=== PATIENT | male | born 1955 | race Caucasian/White ===

== ENCOUNTER → 2018-07-06 | Outpatient (CLI) | payer OTHER ==
[~2018-07-06] MED LIST: LOSARTAN-HCTZ1 EAC2 PO
--- NOTE | 2018-07-06 16:04 | Diagnostic Imaging Report ---
EXAM: CT Chest WITHOUT contrast 07/06/2018 3:00 PM INDICATION: Pulmonary nodule . Hypertension. COMPARISON: None TECHNIQUE: Chest was scanned utilizing a multidetector helical scanner from the lung apex through the level of the adrenal glands without administration of IV contrast. Absence of intravenous contrast decreases sensitivity for detection of lymphadenopathy and vascular pathology. Coronal and sagittal reformations were obtained. Routine protocol was performed. IV CONTRAST: None RADIATION DOSE: Total DLP: 520.80 mGy*cm Estimated effective dose: (DLP x 0.014 x size factor) mSv COMPLICATIONS: None FINDINGS: LINES/ TUBES: None. LUNGS AND AIRWAYS: 4 mm calcified granuloma in the left lung posterior to the aorta as seen on coronal reformatted image 68 and sagittal image 73. No consolidated pneumonia. Airways are normal. PLEURA: The pleural spaces are clear. HEART AND MEDIASTINUM: The thyroid gland is normal. No mediastinal, hilar or axillary lymphadenopathy. The heart is normal in size. There is no pericardial effusion. UPPER ABDOMEN: Fatty infiltration of the liver. BONES: The visualized bony thorax is within normal limits. SOFT TISSUES: Unremarkable. IMPRESSION: 4 mm calcified granuloma in the left lung posterior to the aorta. No right-sided hilar calcified granuloma is seen. No acute cardiopulmonary abnormality. Fatty infiltration of the liver. Signed by: Dr. Oz Cloud M.D. on 07/06/2018 4:00 PM
== END ==
LOC: CT 15:11
PROVIDERS: ATTEND Family Medicine
DX: R91.1 Solitary pulmonary nodule (principal)
CPT/HCPCS: 71250

== ENCOUNTER → 2020-08-22 | Day surgery (SDC) | payer OTHER ==
[2020-08-19 15:52] LABS: BASOPHILS # (AUTO) 0.1 (0.0-0.1); BASOPHILS % 1.2 % (0.0-1.0); EOSINOPHILS # (AUTO) 0.1 (0.0-0.4); EOSINOPHILS % 1.2 % (0.0-6.0); HEMATOCRIT 46.1 % (38.2-49.6); HEMOGLOBIN 15.5 g/dL (14.0-18.0); LYMPHOCYTES # (AUTO) 3.2 (1.0-3.2); LYMPHOCYTES % 34.3 % (18.0-39.1); MEAN CORPUSCULAR HEMOGLOBIN 28.5 pg (28-32); MEAN CORPUSCULAR HGB CONC 33.6 g/dL (31-35); MEAN CORPUSCULAR VOLUME 84.7 fL (81-99); MONOCYTES # (AUTO) 0.9 (0.2-0.8); MONOCYTES % 9.6 % (4.4-11.3); NEUTROPHILS % 53.4 % (38.7-80.0); PLATELET COUNT 215 x10e3/uL (140-360); RED BLOOD COUNT 5.44 x10e6/uL (4.3-5.7)
[~2020-08-22] MED LIST changes: +FENTANYL CITRATE/PF 100MCG/2 ML INJ ONE; +GLUCAGON FOR INJ 1 MG VIAL ONE; +HYOSCYAMINE 0.125 MG TAB ONE; +LIDOCAINE HCL 2% LOCAL INJ 5 ML SDV VIAL INJ ONE; +MIDAZOLAM HCL 2 MG/2 ML VIAL ONE; +PROPOFOL IV EMULSION 10 MG/ML 20 ML VIAL ONE; +SIMETHICONE 40 MG/0.6 ML BTL ONE
[2020-08-22 17:40] VITALS: BP 112/70
== END | disposition home or self-care (01) ==
LOC: OR 12:58
PROVIDERS: ATTEND Internal Medicine Gastroenterology
DX: Z09 Encounter for follow-up examination after completed treatment for conditions other than malignant neoplasm (principal); D12.3 Benign neoplasm of transverse colon; K57.30 Diverticulosis of large intestine without perforation or abscess without bleeding; K64.8 Other hemorrhoids; I10 Essential (primary) hypertension; F17.200 Nicotine dependence, unspecified, uncomplicated; Z01.810 Encounter for preprocedural cardiovascular examination; Z01.812 Encounter for preprocedural laboratory examination; Z11.59 Encounter for screening for other viral diseases; Z68.36 Body mass index [BMI] 36.0-36.9, adult
CPT/HCPCS: 36415; 45384; 85025; 93005; J1610; J2001; J2250; J2704; J3010; U0002; 45378; 45385

== ENCOUNTER 2021-03-23 08:59 | Inpatient (IN) | payer MEDICARE, OTHER ==
[~2021-03-23] VITALS: Ht 170.2 cm; Wt 90.7 kg
[~2021-03-23 08:59] MED LIST changes: -FENTANYL CITRATE/PF 100MCG/2 ML INJ ONE; -GLUCAGON FOR INJ 1 MG VIAL ONE; -HYOSCYAMINE 0.125 MG TAB ONE; -LIDOCAINE HCL 2% LOCAL INJ 5 ML SDV VIAL INJ ONE; -MIDAZOLAM HCL 2 MG/2 ML VIAL ONE; -PROPOFOL IV EMULSION 10 MG/ML 20 ML VIAL ONE; -SIMETHICONE 40 MG/0.6 ML BTL ONE
[2021-03-23] MEDS ORDERED: ONDANSETRON HCL INJ 2MG/ML 2ML 2 MG/ML VIAL IV STA (09:17)
[2021-03-23] MEDS ORDERED: SODIUM CHLORIDE 0.9% 1000ML 1,000 ML IV SCH (09:30)
[2021-03-23] MEDS: FENTANYL CITRATE/PF 100MCG/2 ML INJ IV PRN ×2 (09:56→12:30)
[2021-03-23 09:57] LABS: HEMATOCRIT 45.5 % (38.2-49.6); HEMOGLOBIN 16.3 g/dL (14.0-18.0); LYMPHOCYTES % 3.9 % (18.0-39.1); MEAN CORPUSCULAR HEMOGLOBIN 30.8 pg (28-32); MEAN CORPUSCULAR HGB CONC 35.8 g/dL (31-35); MONOCYTES % 5.1 % (4.4-11.3); NEUTROPHILS % 90.1 % (38.7-80.0); PLATELET COUNT 238 x10e3/uL (140-360); RED BLOOD COUNT 5.29 x10e6/uL (4.3-5.7); RED CELL DISTRIBUTION WIDTH 14.4 % (11.7-14.4)
[2021-03-23 09:58] LABS: BASOPHILS # (AUTO) 0.1 (0.0-0.1); BASOPHILS % 0.3 % (0.0-1.0); LYMPHOCYTES # (AUTO) 0.8 (1.0-3.2)
[2021-03-23 10:03] LABS: ALANINE AMINOTRANSFERASE 26 IU/L (0-55); ALBUMIN 3.9 g/dL (3.5-5.0); ALKALINE PHOSPHATASE 94 IU/L (40-150); ANION GAP 16.9 mmol/L (8-16); BLOOD UREA NITROGEN 14 mg/dL (7-26); BUN/CREATININE RATIO 18 (6-25); CALCIUM 9.2 mg/dL (8.4-10.2); CARBON DIOXIDE 25 mmol/L (22-29); CHLORIDE 102 mmol/L (98-107); CREATININE, SERUM 0.78 mg/dL (0.72-1.25); EST GLOMERULAR FILTRATION RATE > 60 ML/MIN (60-); GLUCOSE 218 mg/dL (74-118); POTASSIUM 3.9 mmol/L (3.5-5.1); SODIUM 140 mmol/L (136-145)
[2021-03-23 10:17] LABS: CLARITY,URINE CLEAR (CLEAR); COLOR,URINE YELLOW (YELLOW); KETONES,URINE 2+ (NEGATIVE); LEUKOCYTE ESTERASE ,URINE NEGATIVE (NEGATIVE); NITRITE,URINE NEGATIVE (NEGATIVE); PROTEIN,URINE DIPSTICK 2+ (NEGATIVE); URINE UROBILINOGEN 1 mg/dL (0.2 - 1)
[2021-03-23 10:30] LABS: MUCUS,URINE FEW (RARE)
[2021-03-23 12:02] LABS: CHOL/HDL RATIO 4.7 (3.9-4.7)
[2021-03-23] MEDS: PIPERACILLIN/TAZO 4.5 GM 100 ML IV SCH (12:30)
[2021-03-23] MEDS: SODIUM CHLORIDE 0.9% 1000ML 1,000 ML IV SCH ×2 (12:30→15:15)
[2021-03-23] MEDS: ONDANSETRON HCL INJ 2MG/ML 2ML 2 MG/ML VIAL IV PRN (12:30)
[2021-03-23 15:28] VITALS: BP 162/78
[2021-03-23 15:29] VITALS: BP 162/78
[2021-03-23 15:37] VITALS: BP 162/78
[2021-03-23] MEDS ORDERED: MORPHINE SULFATE INJ 4 MG/ML INJ 1ML IV ONE (17:50)
[2021-03-23 19:54] VITALS: BP 153/75
[2021-03-23] MEDS: HYDROCHLOROTHIAZIDE 25 MG TAB PO SCH (20:45)
[2021-03-23] MEDS: LOSARTAN POTASSIUM 100 MG TAB PO SCH (20:45)
[2021-03-23] MEDS: ACETAMINOPHEN 325 MG TAB PO PRN (20:45)
[2021-03-23 21:00] VITALS: BP 153/75
[2021-03-23 23:56] VITALS: BP 130/71
[2021-03-24] MEDS: PIPERACILLIN/TAZO 4.5 GM 100 ML IV SCH ×2 (00:15→11:53)
[2021-03-24] MEDS ORDERED: SODIUM CHLORIDE 0.9% 50ML 50 ML ONE (00:21)
[2021-03-24] MEDS: SODIUM CHLORIDE 0.9% 1000ML 1,000 ML IV SCH ×4 (00:30→21:05)
[2021-03-24] MEDS: ACETAMINOPHEN 325 MG TAB PO PRN (04:32)
[2021-03-24 04:36] VITALS: BP 128/69
[2021-03-24 04:53] LABS: BASOPHILS # (AUTO) 0.1 (0.0-0.1); BASOPHILS % 0.2 % (0.0-1.0); HEMATOCRIT 42.1 % (38.2-49.6); HEMOGLOBIN 13.9 g/dL (14.0-18.0); LYMPHOCYTES # (AUTO) 1.4 (1.0-3.2); LYMPHOCYTES % 6.8 % (18.0-39.1); MEAN CORPUSCULAR HEMOGLOBIN 28.2 pg (28-32); MEAN CORPUSCULAR VOLUME 85.4 fL (81-99); MONOCYTES # (AUTO) 2.2 (0.2-0.8); MONOCYTES % 10.4 % (4.4-11.3); NEUTROPHILS # (AUTO) 17.2 (2.1-6.9); PLATELET COUNT 237 x10e3/uL (140-360); RED BLOOD COUNT 4.93 x10e6/uL (4.3-5.7); RED CELL DISTRIBUTION WIDTH 13.1 % (11.7-14.4)
[2021-03-24 05:21] LABS: ANION GAP 13.9 mmol/L (8-16); BLOOD UREA NITROGEN 12 mg/dL (7-26); BUN/CREATININE RATIO 14 (6-25); CALCIUM 8.4 mg/dL (8.4-10.2); CARBON DIOXIDE 26 mmol/L (22-29); CHLORIDE 103 mmol/L (98-107); CREATININE, SERUM 0.88 mg/dL (0.72-1.25); EST GLOMERULAR FILTRATION RATE > 60 ML/MIN (60-); GLUCOSE 176 mg/dL (74-118); POTASSIUM 3.9 mmol/L (3.5-5.1); SODIUM 139 mmol/L (136-145)
[2021-03-24] MEDS: HYDROCHLOROTHIAZIDE 25 MG TAB PO SCH (08:17)
[2021-03-24] MEDS: LOSARTAN POTASSIUM 100 MG TAB PO SCH (08:17)
[2021-03-24 08:32] VITALS: BP 134/79
[2021-03-24] MEDS ORDERED: SEVOFLURANE INHAL SOLN 250 ML PEN BTL ONE (11:37)
[2021-03-24] MEDS ORDERED: ROCURONIUM BROMIDE 10 MG/ML 5ML VIAL IV ONE (11:37)
[2021-03-24] MEDS ORDERED: POVIDONE IODINE 0.05% 0.05 % ML PO ONE (11:37)
[2021-03-24] MEDS ORDERED: LIDOCAINE HCL 2% LOCAL INJ 5 ML SDV VIAL INJ ONE (11:37)
[2021-03-24] MEDS ORDERED: DEXAMETHASONE SOD PHOS INJ 4 MG/ML VIAL ONE (11:37)
[2021-03-24] MEDS ORDERED: PROPOFOL IV EMULSION 10 MG/ML 20 ML VIAL ONE (11:37)
[2021-03-24] MEDS ORDERED: LIDOCAINE HCL 2% JELLY 5 ML TUBE ONE (11:37)
[2021-03-24] MEDS ORDERED: ONDANSETRON HCL INJ 2MG/ML 2ML 2 MG/ML VIAL ONE (11:37)
[2021-03-24] MEDS ORDERED: CEFOXITIN SOD 1 GM VIAL ONE (11:37)
[2021-03-24 11:38] VITALS: BP 142/77
[2021-03-24] MEDS ORDERED: MIDAZOLAM HCL 2 MG/2 ML VIAL ONE (13:26)
[2021-03-24] MEDS ORDERED: FENTANYL CITRATE/PF 100MCG/2 ML INJ ONE (13:26)
[2021-03-24] MEDS ORDERED: BUPIVACAINE 0.25% 30ML SDV ONE (14:03)
[2021-03-24] MEDS ORDERED: SUGAMMADEX SODIUM 200 MG/2 ML VIAL IV ONE (14:35)
[2021-03-24] MEDS ORDERED: ACETAMINOPHEN 1000 MG/100 ML 100 ML IV ONE (14:35)
[2021-03-24 18:31] VITALS: BP 134/75
[2021-03-24] MEDS: MORPHINE SULFATE INJ 4 MG/ML INJ 1ML IV PRN ×2 (19:20→23:33)
[2021-03-24] MEDS: ONDANSETRON HCL INJ 2MG/ML 2ML 2 MG/ML VIAL IV PRN ×2 (19:20→23:33)
[2021-03-24 19:50] VITALS: BP 135/77
[2021-03-24 21:00] VITALS: BP 135/77
[2021-03-25] VITALS (8 sets, daily range): BP systolic 120–138; BP diastolic 76–86
[2021-03-25] MEDS: PIPERACILLIN/TAZO 4.5 GM 100 ML IV SCH ×2 (00:34→12:42)
[2021-03-25] MEDS: SODIUM CHLORIDE 0.9% 1000ML 1,000 ML IV SCH ×4 (01:00→23:47)
[2021-03-25] MEDS: ONDANSETRON HCL INJ 2MG/ML 2ML 2 MG/ML VIAL IV PRN (05:42)
[2021-03-25] MEDS: MORPHINE SULFATE INJ 4 MG/ML INJ 1ML IV PRN ×3 (05:42→15:00)
[2021-03-25 06:46] LABS: BASOPHILS % 0.2 % (0.0-1.0); HEMATOCRIT 39.6 % (38.2-49.6); HEMOGLOBIN 13.4 g/dL (14.0-18.0); LYMPHOCYTES # (AUTO) 1.1 (1.0-3.2); MEAN CORPUSCULAR HEMOGLOBIN 29.5 pg (28-32); MEAN CORPUSCULAR HGB CONC 33.8 g/dL (31-35); MEAN CORPUSCULAR VOLUME 87.2 fL (81-99); MONOCYTES # (AUTO) 1.4 (0.2-0.8); MONOCYTES % 7.2 % (4.4-11.3); NEUTROPHILS # (AUTO) 16.3 (2.1-6.9); PLATELET COUNT 223 x10e3/uL (140-360); RED BLOOD COUNT 4.54 x10e6/uL (4.3-5.7); RED CELL DISTRIBUTION WIDTH 13.3 % (11.7-14.4)
[2021-03-25 07:04] LABS: ALANINE AMINOTRANSFERASE 58 IU/L (0-55); ALBUMIN 2.7 g/dL (3.5-5.0); ALBUMIN/GLOBULIN RATIO 0.7 (0.8-2.0); ALKALINE PHOSPHATASE 111 IU/L (40-150); BLOOD UREA NITROGEN 14 mg/dL (7-26); BUN/CREATININE RATIO 17 (6-25); CALCIUM 8.3 mg/dL (8.4-10.2); CARBON DIOXIDE 23 mmol/L (22-29); CHLORIDE 106 mmol/L (98-107); CREATININE, SERUM 0.81 mg/dL (0.72-1.25); EST GLOMERULAR FILTRATION RATE > 60 ML/MIN (60-); GLUCOSE 197 mg/dL (74-118); SODIUM 137 mmol/L (136-145)
[2021-03-25] MEDS: LOSARTAN POTASSIUM 100 MG TAB PO SCH (09:17)
[2021-03-25] MEDS: HYDROCHLOROTHIAZIDE 25 MG TAB PO SCH (09:18)
[2021-03-26] VITALS (8 sets, daily range): BP systolic 123–155; BP diastolic 74–82
[2021-03-26] MEDS: PIPERACILLIN/TAZO 4.5 GM 100 ML IV SCH ×2 (00:40→12:07)
[2021-03-26] MEDS: SODIUM CHLORIDE 0.9% 1000ML 1,000 ML IV SCH ×3 (06:35→19:46)
[2021-03-26 08:09] LABS: BASOPHILS % 0.3 % (0.0-1.0); EOSINOPHILS # (AUTO) 0.2 (0.0-0.4); EOSINOPHILS % 1.4 % (0.0-6.0); HEMATOCRIT 37.8 % (38.2-49.6); HEMOGLOBIN 12.4 g/dL (14.0-18.0); LYMPHOCYTES # (AUTO) 2.4 (1.0-3.2); LYMPHOCYTES % 17.6 % (18.0-39.1); MEAN CORPUSCULAR HEMOGLOBIN 28.8 pg (28-32); MEAN CORPUSCULAR HGB CONC 32.8 g/dL (31-35); MEAN CORPUSCULAR VOLUME 87.7 fL (81-99); MONOCYTES # (AUTO) 0.9 (0.2-0.8); MONOCYTES % 6.7 % (4.4-11.3); NEUTROPHILS # (AUTO) 9.9 (2.1-6.9); NEUTROPHILS % 73.6 % (38.7-80.0); PLATELET COUNT 251 x10e3/uL (140-360); RED BLOOD COUNT 4.31 x10e6/uL (4.3-5.7); RED CELL DISTRIBUTION WIDTH 13.3 % (11.7-14.4)
[2021-03-26] MEDS ORDERED: HYDROCODONE/APAP 7.5MG-325MG 1 EA TAB PO PRN (09:00)
[2021-03-26] MEDS ORDERED: DOCUSATE SODIUM 100 MG CAP PO SCH (09:00)
[2021-03-26] MEDS: SENNOSIDES 8.6 MG TAB PO SCH (09:25)
[2021-03-26] MEDS: LOSARTAN POTASSIUM 100 MG TAB PO SCH (09:26)
[2021-03-26] MEDS: HYDROCHLOROTHIAZIDE 25 MG TAB PO SCH (09:27)
[2021-03-26] MEDS: ONDANSETRON HCL INJ 2MG/ML 2ML 2 MG/ML VIAL IV PRN (09:33)
[2021-03-26] MEDS: DOCUSATE SODIUM 100 MG CAP PO SCH (15:39)
[2021-03-27] MEDS: PIPERACILLIN/TAZO 4.5 GM 100 ML IV SCH ×2 (00:15→12:00)
[2021-03-27 00:47] VITALS: BP 135/80
[2021-03-27] MEDS: SODIUM CHLORIDE 0.9% 1000ML 1,000 ML IV SCH ×3 (02:25→15:45)
[2021-03-27 04:55] VITALS: BP 140/79
[2021-03-27 09:00] VITALS: BP 140/79
[2021-03-27] MEDS: DOCUSATE SODIUM 100 MG CAP PO SCH (09:54)
[2021-03-27] MEDS: SENNOSIDES 8.6 MG TAB PO SCH (09:55)
[2021-03-27] MEDS: HYDROCHLOROTHIAZIDE 25 MG TAB PO SCH (09:55)
[2021-03-27] MEDS: LOSARTAN POTASSIUM 100 MG TAB PO SCH (09:55)
[2021-03-27 10:12] VITALS: BP 148/71
[2021-03-27 14:00] VITALS: BP 152/78
[2021-03-27 17:42] VITALS: BP 153/86
== END 2021-03-27 19:15 | disposition home or self-care (01) | DRG 854 ==
LOC: ER 09:11 → ERHOLD 12:15 → MED/SURG2 14:26
PROVIDERS: ADMIT Internal Medicine; ATTEND Internal Medicine
PROC: 0FT40ZZ Resection of Gallbladder, Open Approach (ICD-10-PCS; principal; 2021-03-23)
DX: A41.9 Sepsis, unspecified organism (principal); K80.10 Calculus of gallbladder with chronic cholecystitis without obstruction; N39.0 Urinary tract infection, site not specified; E66.9 Obesity, unspecified; Z68.33 Body mass index [BMI] 33.0-33.9, adult; K82.A1 Gangrene of gallbladder in cholecystitis; I10 Essential (primary) hypertension; Z20.822 Contact with and (suspected) exposure to COVID-19
CPT/HCPCS: 36415; 76705; 78227; 80048; 80053; 80061; 81001; 83036; 83605; 83690; 84484; 85025; 87040; 88304; 93005; 99284; A9537; J0694; J1100; J2001; J2250; J2270; J2405; J2543; J3010; J7030; U0002